=== PATIENT | male | born 1965 | race Caucasian/White ===

== ENCOUNTER 2022-01-29 15:27 | Emergency (ER) | payer BC, SELFPAY ==
[2022-01-29] VITALS (7 sets, daily range): BP systolic 104–206; BP diastolic 58–175; PULSE 66–86; RESP 10–20; TEMP 36.4; O2SAT 85–100; BMI 25.6
--- NOTE | 2022-01-29 15:34 | EKG12_ITS ---
Test Reason : FALL/PAIN Blood Pressure : / mmHG Vent. Rate : 077 BPM Atrial Rate : 077 BPM P-R Int : 152 ms QRS Dur : 102 ms QT Int : 384 ms P-R-T Axes : 055 -35 057 degrees QTc Int : 434 ms Normal sinus rhythm Left axis deviation Low voltage QRS ( Limb Leads) Abnormal ECG Confirmed by KHADIJAH MARTINEZ, ROYER ([id number]), writer editor KRISTINE BELTRAN ([id number]) on 01/31/2022 10:57:57 AM Referred By: Confirmed By:ROYER LUCIO MD
--- NOTE | 2022-01-29 15:35 | CT_ITS ---
STUDY: CT CHEST, ABDOMEN T PELVIS WITH CONTRAST REASON FOR EXAM: Male, 56 years old. as of breath, blunt trauma, -- TRAUMA ONLY: IV Contrast. Dont wait for creatinine RADIATION DOSAGE (If Supplied By Facility): CTDIvol = ( 12.13 ) mGy, DLP = ( 1022.04 ) mGycm TECHNIQUE: Transaxial imaging was performed following intravenous administration of IV 100mL Isovue-300. Individualized dose optimization techniques were used for this CT. COMPARISON: No relevant priors. FINDINGS: CHEST The lungs are normal. There is no demonstrated pleural abnormality. Normal heart and pericardium. Normal mediastinum. Normal hilar regions. Normal unenhanced pulmonary arteries. Normal aorta arch and descending thoracic aorta. Acute fractures of the posterior left fifth and sixth ribs. No hemothorax or pneumothorax. There is no demonstrated abnormality of the visualized upper abdomen. ABDOMEN The visualized lung bases are unremarkable. The visualized portions of the heart are within normal limits. Normal liver. Normal gallbladder and extrahepatic biliary system. Normal spleen. Normal pancreas. Normal bilateral adrenal glands. Normal right kidney. Normal left kidney. Normal visualized stomach. Normal small intestine. Normal colon. The appendix is visualized and appears normal. Normal abdominal aorta. Normal inferior vena cava. Normal retroperitoneum. Normal abdominal wall. Normal osseous structures. PELVIS Normal urinary bladder. Normal visualized small intestine. Normal visualized colon. There is no pelvic fluid. There is no pelvic lymphadenopathy or mass lesion. Normal visualized pelvic arteries. Normal abdominal wall. Status post right hip arthroplasty which produces streak artifact and obscures the pelvis. CT/CT Chest, Abd, Pel w/Contrast IMPRESSION: 1. Acute fractures of the posterior left fifth and sixth ribs. No pneumothorax or hemothorax. 2. No acute traumatic aortic injury. 3. No solid organ or bowel injury. Electronically Signed: Marck Loja MD at 16:29 EDT ,
--- NOTE | 2022-01-29 15:36 | EDS_ITS ---
HPI History of Present Illness Chief Complaint: Chest Pain Detail of Chief Complaint: Blunt trauma, shortness of breath Informant: patient Onset/Context/Timing Onset: Hours Mechanism/Context: Blunt Injury and Fall (8 foot revealing tractor landed on patient) Quality of Pain: Dull and Aching Location: Left chest, flank Current Severity: Mild Maximum Severity: Severe Worsened by: Breathing and movement Relieved by: Nothing Associated Symptoms Associated Symptoms: Negative for Parasthesias, Weakness, Loss of function, Inability to ambulate or Loss of consciousness Narrative Narrative: Patient is a 56-year-old male on no medication with no past medical history who was mowing the yard. He fell with riding tractor down in a [place]. Tractor landed on him. Is having trouble breathing. He complains of pain when he breathes on the left side. He denies head trauma. Nuys loss of conscious. Nuys neck pain. Denies paresthesia, anesthesia medics present at time of the injury. Tetanus Immunization: Unknown Recent Illness/Hospitalization: No PFSH PFSH Medical History no medical history no medical history Home Medications oxycodone-acetaminophen 5 mg-325 mg tablet 1 tab PO Q6H PRN PRN pain 5 days #20 TABLETS 01/29/22 [Rx Last Taken Unknown] Allergy/AdvReac Type Severity Reaction Status Date / Time latex Allergy Rash Verified 01/29/22 15:37 Surgical History (Updated 01/29/22 @ 15:55 by Karen Kessler) History of right hip replacement Surgical History no surgical history no surgical history Social History (Updated 01/29/22 @ 15:[address] Efrain Hauser MD) household members: none Smoking Status: Former smoker alcohol intake: never substance use type: does not use ROS ROS ED Constitutional Constitutional ED: Denies chills, fever(s) or subjective Eyes Eyes: Denies blurry vision or change in vision ENT ENT ED: Denies ear pain, rhinorrhea or sore throat Cardiovascular Cardiovascular: Reports chest pain; Denies palpitations, paroxysmal nocturnal dyspnea or racing heartbeat Respiratory/Chest Respiratory/Chest: Reports dyspnea; Denies cough, dyspnea on exertion or paroxysmal nocturnal dyspnea Gastrointestinal Gastrointestinal: Reports abdominal pain; Denies constipation, diarrhea, melena, nausea or vomiting Genitourinary Genitourinary ED: Denies dysuria, hematuria or urinary frequency Musculoskeletal Musculoskeletal: Reports back pain; Denies arthralgias, myalgias or neck pain Integumentary Reports abscess and Abrasions; Denies rash Neurologic Neurologic: Denies headache(s), paresthesias or weakness Endocrine Endocrinology: Denies cold intolerance Hematologic/Lymphatic Hematologic/Lymphatic: Denies easy bleeding or easy bruising EXAM Physical Exam Const Vital Signs: 01/29/22 15:32 01/29/22 15:42 01/29/22 15:53 Temperature 97.6 F L Temperature Source Oral Pulse Rate 76 86 Respiratory Rate 20 H 20 H Respiratory Effort Labored Respiratory Depth Shallow Respiratory Pattern Tachypnea Blood Pressure 206/175 H 126/76 H Blood Pressure Mean 185 92 Pulse Ox 100 100 Oxygen Delivery Method Room Air Room Air Oxygen Flow Rate (L/min) 01/29/22 16:00 01/29/22 16:08 01/29/22 16:54 Temperature Temperature Source Pulse Rate 70 70 Respiratory Rate 12 13 Respiratory Effort Respiratory Depth Respiratory Pattern Blood Pressure 116/68 Blood Pressure Mean 84 Pulse Ox 85 100 98 Oxygen Delivery Method Room Air Nasal Cannula Room Air Oxygen Flow Rate (L/min) 3 01/29/22 17:00 Temperature Temperature Source Pulse Rate 72 Respiratory Rate 14 Respiratory Effort Respiratory Depth Respiratory Pattern Blood Pressure 117/68 Blood Pressure Mean 84 Pulse Ox 98 Oxygen Delivery Method Room Air Oxygen Flow Rate (L/min) Positive well nourished and well developed Constitutional Narrative: Patient appears in discomfort. He is not tachypneic. There is no retractions. He has no use of accessory muscles. General Appearance ED: well developed; Negative for NAD HEENT HEENT Narrative: Head is atraumatic normocephalic. Ears normal. No hemotympanum. No CSF otorrhea or rhinorrhea. Negative celis sign or raccoon sign. There is no evid ence of trauma to the scalp or face. There is no dental trauma. There is no septal deviation hematoma. atraumatic Eyes PERRL and EOMs intact bilaterally General Eye ED: Yes other Other Details: There is no subconjunctival hemorrhage noted. There is no APD. Neck full ROM General: Negative for tenderness Chest Wall inspection of chest normal and palpation of chest normal Chest Narrative: Patient complains of pain to palpation midclavicular line to posterior axillary line over ribs [id number] on the left. There is no crepitus subcutaneous air. There is evidence of trauma over the left scapula. There is an abrasion noted. Resp No normal respiratory effort and clear to auscultation bilaterally Effort and Inspection: pain with movement Cardio regular rhythm, S1 normal heart sound, S2 normal heart sound and no murmurs GI normal to inspection, nondistended, normoactive bowel sounds, non-tender and no masses GI Narrative: There is no hepatosplenomegaly. Specifically there is no tenderness near the left costal margin. Back/Spine no thoracic nor lumbar tenderness; Negative for normal to inspection General Back: CVA tenderness left Extremity normal to inspection and full ROM Neuro oriented x3, CN's II-XII intact bilaterally, moves all extremities, no focal motor deficits and no sensory deficits noted [place] Coma Scale: document GCS findings Obeys Commands Oriented Sensorium / Orientation: alert Motor Exam: strength 5/5 throughout Deep Tendon Reflexes: Rt Patellar (L4): 2+, Lt Patellar (L4): 2+, Rt Ankle (S1): 2+ and Lt Ankle (S1): 2+ Deep Tendon Reflexes Back: Rt Patellar (L4): 2+, Lt Patellar (L4): 2+, Rt Ankle (S1): 2+ and Lt Ankle (S1): 2+ Plantar Reflex: Downgoing: bilateral Psych mental status grossly normal and thought process normal Skin no rashes or lesions noted, skin turgor normal and no jaundice Wounds: wounds noted MDM MDM MDM Narrative Medical decision making narrative: With pain ovation of the scapula, significant tenderness over the ribs and tenderness over the flank area will obtain CT of the chest abdomen pelvis to evaluate for thoracic injury, pulmonary contusion, multiple rib fractures, renal contusion and possible splenic injury. IV was established. He was given IV fluids. Was given Zofran and morphine for his discomfort and to prevent nausea and vomiting. Tetanus was updated. Patient's blood pressure improved markedly after pain medicine. Per my independent review of the CT of the chest, abdomen pelvis there is no evidence of pneumothorax. There is no widening the mediastinum. There is no evidence of injury to the liver, spleen or kidneys. There is an abnormal finding noted apex of the left thorax. Uncertain whether this is artifact versus an atypical presentation for pneumothorax. Awaiting formal read by radiologist. Lab Data Attestation: I reviewed the patient's lab results. Lab results narrative: Count is slightly elevated and is unremarkable. This is due to the trauma. Basic metabolic panel is unremarkable. Labs: Laboratory Results - last 24 hr 01/29/22 01/29/22 01/29/22 15:40 15:40 16:55 WBC 11.3 H RBC 4.52 L Hgb 14.3 Hct 43.2 MCV 95.6 H MCH 31.6 MCHC 33.1 RDW Std Deviation 48.9 H RDW Coeff of Duran 13.8 Plt Count 157 MPV 11.0 Immature Gran % (Auto) 0.400 Neut % (Auto) 78.5 H Lymph % (Auto) 11.6 L [place] % (Auto) 8.3 Eos % (Auto) 0.9 Baso % (Auto) 0.3 Absolute Neuts (auto) 8.9 H Absolute Lymphs (auto) 1.31 Nucleated RBC % 0 Sodium 143 Potassium 3.9 Chloride 106 Carbon Dioxide 29.0 Anion Gap 8 BUN 14 Creatinine 1.01 Estim Creat Clear Calc 72.82 Est GFR (MDRD) Af Amer 98 Est GFR (MDRD) Non-Af 81 BUN/Creatinine Ratio 13.9 Glucose 95 Calcium 9.2 Urine Color Yellow Urine Clarity Clear Urine pH 7.0 Ur Specific [place] 1.005 Urine Protein Negative Urine Glucose (UA) Normal Urine Ketones 5 H Urine Occult Blood 25 H Urine Nitrite Negative Urine Bilirubin Negative Urine Urobilinogen Normal Ur Leukocyte Esterase Negative Urine RBC 0-5 SEEN Urine WBC 0 SEEN Ur Squamous Epith Cells 0-5 SEEN Urine Bacteria RARE Urine Mucus 0 SEEN Radiography Diagnostic Testing: Clinical Impression(s) from Imaging Studies Chest/Abdomen/Pelvis CT 01/29/22 15:35 IMPRESSION: 1. Acute fractures of the posterior left fifth and sixth ribs. No pneumothorax or hemothorax. 2. No acute traumatic aortic injury. 3. No solid organ or bowel injury. Electronically Signed: Marck Loja MD at 16:29 EDT , EKG Initial EKG: Attestation: I personally reviewed and interpreted this EKG as follows: Interpretation: Sinus Rhythm (Rate is 77. [place] interval 252 ms. QS duration 102 ms. QT duration 384 ms axis to the left. Other than the left axis EKG is unremarkable.) Critical Care Time Critical Care Time: Yes Critical care time (excluding procedures): 30-74 minutes (26), Including time spent: (History, physical, documentation,), Discussing w/Patient &/or Family/Psychiatric Aide and Performing Direct Patient Care at Bedside Discharge Plan Triage Chief Complaint: Chest Pain Other Complaint: Trauma ED Provider: Efrain Hauser Dx/Rx/DC Orders Clinical Impression: Multiple fractures of ribs of left side, Blunt chest trauma, Traumatic flank pain, Blunt abdominal trauma, Abrasion of left lower extremity Instructions: ED Abd Injury Blunt Benign, ED Abrasion, ED Rib Fracture Prescriptions: New oxycodone-acetaminophen [oxycodone-acetaminophen] 5-325 mg tablet 1 tab PO Q6H PRN PRN (Reason: pain) 5 Days Qty: 20 0RF Stand Alone Forms: ED Work / School Excuse Primary Care Provider: BARBARA WASHBURN Referrals: BARBARA WASHBURN [Other] - 3-5 Days if not improving Activity Restrictions/Additional Instructions: 1. Apply ice to areas of discomfort 6-10 times a day for the next 3 to 5 days. Application of heat will make your pain worse. 2. Use incentive spirometer every hour while awake to prevent pulmonary complications Disposition Disposition: Home, Self Care
[2022-01-29] MEDS: 0.9% Normal Saline 1,000 ML 999 ML IV (15:49)
[2022-01-29 15:51] LABS: Absolute Lymphocyte Count 1.31 X10^3/uL (0.83-4.51); Absolute Neutrophil Count 8.9 X10^3/uL (2.0-7.7); Basophil# 0.03 X10^3/uL; Basophil% 0.3 % (0-1); Eosinophils% 0.9 % (0-5); Hematocrit 43.2 % (40-54); Hemoglobin 14.3 g/dL (13.0-16.5); Lymphocyte # 1.31 X10^3/ul (0.83-4.51); Lymphocyte % 11.6 % (19-41); Mean Corp Hgb Conc 33.1 g/dL (32-36); Mean Corpuscular Hgb 31.6 pg (27.0-32.0); Mean Corpuscular Volume 95.6 fL (80-94); Monocyte# 0.94 X10^3/uL; Monocyte% 8.3 % (0-10); NRBC Flagged by Analyzer 0 % (0-5); Neutrophil # 8.87 X10^3/uL (2.7-7.7); Neutrophil % 78.5 % (47-70); Platelet Count 157 K/mm3 (150-450); RBC Distribution Width CV 13.8 % (11.6-14.6); RBC Distribution Width SD 48.9 fl (35.1-43.9); Red Blood Count 4.52 M/mm3 (4.6-6.2); White Blood Count 11.3 K/mm3 (4.4-11.0)
[2022-01-29] MEDS: Ondansetron 4 MG/2 ML Vial IV ×2 (15:51→17:00)
[2022-01-29] MEDS: Morphine 4 MG/ML Syringe IV (15:51)
[2022-01-29 16:02] LABS: Anion Gap 8 (5-15); BUN 14 mg/dL (7-18); BUN/Creat Ratio 13.9 RATIO (10-20); Calcium,Total 9.2 mg/dL (8.5-10.1); Chloride 106 mmol/L (98-107); Creatinine, Serum 1.01 mg/dL (0.70-1.30); EST Glomerular Filtration Rate 81 mL/min (>60); Est Glom Filt Rate - Afr Amer 98 mL/min (>60); Estimated Creatinine Clearance 72.82 ml/min; Glucose 95 mg/dL (74-106); Potassium 3.9 mmol/L (3.5-5.1); Sodium Level 143 mmol/L (136-145)
[2022-01-29] MEDS: Diphth,Pertuss(Acell),Tet Vac 0.5 ML Vial IM (16:59)
[2022-01-29] MEDS: HYDROmorphone 1 MG/ML Syringe 0.5 MG IV (17:00)
[2022-01-29 17:14] LABS: Mucous, Urine 0 SEEN /hpf (<or=2+); White Blood Cells 0 SEEN /hpf (0-5)
[2022-01-29 17:22] LABS: Color, Urine Yellow (Yellow); Glucose, Dipstick Normal (Normal); Ketone-Dipstick 5 mg/dl (Negative); Leukocyte Esterase-Dipstick Negative /ul (Negative); Nitrite-Dipstick Negative (Negative); Occult Blood-Urine 25 /ul (Negative); Protein-Dipstick Negative (Negative); Specific Gravity, Urine 1.005 (1.002-1.030); Urine Bilirubin Dipstick Negative (Negative); Urine Clarity Clear (Clear); Urine Urobilinogen Normal (Normal)
[2022-01-29 18:00] LABS: Bacteria RARE /hpf (None Seen); Red Blood Cells-Urine 0-5 SEEN /hpf (0-5); Squamous Epithelial Cells - UA 0-5 SEEN /hpf (0-5)
== END 2022-01-29 18:27 | disposition home or self-care (01) ==
PROVIDERS: Emergency Provider Emergency Medicine; Visit Provider Emergency Medicine
DX: S22.42XA Multiple fractures of ribs, left side, initial encounter for closed fracture (principal); S80.812A Abrasion, left lower leg, initial encounter; R10.9 Unspecified abdominal pain; R06.02 Shortness of breath; Z23 Encounter for immunization; Z87.891 Personal history of nicotine dependence; W19.XXXA Unspecified fall, initial encounter
CPT/HCPCS: 71260; 74177; 80048; 81001; 85025; 90715; 93005; 96361; 96374; 96375; 96376; 99285; J7030; Q9967; A4216; J2405